=== PATIENT | male | born 1965 | race Caucasian/White ===

== ENCOUNTER 2016-08-01 12:12 | Emergency (ER) | payer OTHER ==
[~2016-08-01 12:12] MED LIST: FLEC1TAB PO; METO25TAB PO; PRAD75CA3 PO
[2016-08-01] MEDS ORDERED: ASPIRIN 81 MG CHEW TABLET As Ordered ONE (13:02)
[2016-08-01] MEDS ORDERED: NITROGLYCERIN 0.4 MG SUBL TABLET As Ordered ONE (13:02)
[2016-08-01 13:19] LABS: BASO # 0.1 K/mm3 (0.0-0.2); EOS # 0.4 K/mm3 (0.0-0.50); EOS % 4.1 % (0.0-3.0); LARGE UNSTAINED CELL # 0.3 K/mm3 (0.0-0.4); LARGE UNSTAINED CELL % 3.1 % (0.0-4.0); LYMPH # 2.9 K/mm3 (1.5-4.5); LYMPH % 32.3 % (24.0-44.0); MEAN CORPUSCULAR HEMOGLOBIN 28.9 pg (27.0-33.0); MEAN CORPUSCULAR HGB CONC 33.5 g/dl (32.0-36.5); MEAN CORPUSCULAR VOLUME 86.3 fl (80.0-96.0); MONO # 0.5 K/mm3 (0.0-0.8); MONO % 5.2 % (0.0-5.0); NEUTROPHILS # 4.9 K/mm3 (1.8-7.7); NEUTROPHILS % 54.2 % (36.0-66.0); PLATELET COUNT, AUTOMATED 201 k/mm3 (150-450); RED CELL DISTRIBUTION WIDTH 13.6 % (11.5-14.5); WHITE BLOOD COUNT 9.1 K/mm3 (4.0-10.0)
[2016-08-01 13:23] LABS: ALBUMIN 3.8 GM/DL (3.2-5.2); ALBUMIN/GLOBULIN RATIO 1.23 (1.00-1.93); ALKALINE PHOSPHATASE 63 U/L (45-117); ALT/SGPT 41 U/L (12-78); ANION GAP 8 MEQ/L (8-16); AST/SGOT 28 U/L (15-37); BILIRUBIN,DIRECT < 0.1 MG/DL (0.0-0.2); BILIRUBIN,TOTAL 0.4 MG/DL (0.2-1.0); BLOOD UREA NITROGEN 16 MG/DL (7-18); CALCIUM LEVEL 8.8 MG/DL (8.5-10.1); CARBON DIOXIDE LEVEL 27 MEQ/L (21-32); CHLORIDE LEVEL 107 MEQ/L (98-107); CREATININE FOR GFR 0.87 MG/DL (0.70-1.30); GLOMERULAR FILTRATION RATE > 60.0 (>56); GLUCOSE, FASTING 81 MG/DL (70-105); SODIUM LEVEL 142 MEQ/L (136-145); TOTAL PROTEIN 6.9 GM/DL (6.4-8.2)
--- NOTE | 2016-08-01 14:57 | REP ---
CHEST, ONE VIEW: HISTORY: Chest pain. COMPARISON: 06/28/2016 A minimal increase in interstitial markings is present in the lungs consistent with chronic interstitial fibrosis. The heart is normal in size. The pulmonary vasculature is normal in appearance. IMPRESSION: Chronic interstitial fibrosis. Signed by Scotty Gonzales MD 08/01/2016 03:08 P
--- NOTE | 2016-08-01 15:56 | EDDOCDS ---
Physician Documentation [facility] Name: Woody Whittaker Age: 51 yrs Sex: Male : 1965 Arrival Date: 08/01/2016 Time: 12:12 Bed 11 Private MD: Haylee Laurent Abdul Disposition: 08/01 15:40 Critical Care: Critical care not applicable. pc Disposition: 08/01/16 15:42 Discharged to Home/Self Care. Impression: Chest pain, unspecified. - Condition is Stable. - Discharge Instructions: Nonspecific Chest Pain. - Prescriptions for Protonix 40 mg Oral Tablet - take 1 tablet by ORAL route once daily; 30 tablet. Aspirin 81 mg - take 1 tablet by ORAL route once daily; 90 tablet. - Medication Reconciliation, Work Release Form - 1 day, Local Pharmacy Hours form. - Follow up: Magy Lindsey; When: Per Dr. Soto, the office will be calling to arrange an earlier stress test date; Reason: Continuance of care. - Problem is new. - Symptoms have improved. HPI: 12:57 This 51 yrs old Male presents to ER via Walkin/Carried/Asstd with complaints pc of Chest Pain. 12:57 The history is obtained from the patient. Symptoms began suddenly at 09:00, and are pc unchanged since the onset. Symptoms are ongoing and are constant. Symptoms He was driving to work and developed epigastric pain. At its worst, the symptoms were a 4 out of 10. In the emergency department, the symptoms are a 2 out of 10. The chest pain is described as a pressure. It is located primarily in the epigastric area. The pain does not radiate. The chest pain was associated with dizziness. 13:06 The symptoms are aggravated by nothing. The symptoms are alleviated by nothing. The pc patient's known risk factors for coronary artery disease include: a family history of coronary artery disease. The patient has not experienced similar symptoms in the past. 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 Historical: - Allergies: no known allergies; - Home Meds: 1. flecainide 50 mg Oral tab 1 tab every 12 hours 2. metoprolol tartrate 25 mg Oral tab 1 tab 2 times per day - PMHx: Atrial Fib; - PSHx: none; - The history from nurses notes was reviewed: and I agree with what is documented. - Social history: Smoking status: Patient uses tobacco products, light tobacco smoker. No barriers to communication noted, The patient speaks fluent Vincentian, Speaks appropriately for age. - Family history: Not pertinent. - : The pt / caregiver states he / she is not on anticoagulants. Home medication list is obtained from the patient. - Hospitalizations: : No recent hospitalization is reported. - Exposure Risk Screening:: None identified. - Immunization history:: All immunizations up-to-date. - Social history:: the patient smokes cigarettes the patient does not drink alcohol. ROS: 13:06 All systems are negative except as listed. The cardiovascular, respiratory, pc gastrointestinal and neurological components are also addressed in the HPI. Exam: 13:06 General Appearance: alert, no acute distress. pc 13:06 ENT: ear, nose and throat normal, pharynx normal. 13:06 Neck: supple, non-tender, no masses are appreciated. 13:06 Respiratory: no respiratory distress, normal breath sounds. 13:06 Cardiovascular: regular pulse rate, regular heart rhythm, normal heart sounds, equal and full pulses bilaterally. 13:06 Abdomen: soft, non-tender, no organomegaly, normal bowel sounds. 13:06 Skin: skin color is normal, warm, dry. 13:06 Extremities: The extremities have a grossly normal appearance, are non-tender, without acute ROM abnormalities. 13:06 Neuro: alert, oriented to person, place and time, cranial nerves normal as tested, no motor deficits, no sensory deficits. 13:06 Psych: normal mood. Vital Signs: 12:14 BP 109 / 71; Pulse 68; Resp 18 S; Temp 96.7(O); Pulse Ox 98% on R/A; Weight 95.25 kg / gr2 209.99 lbs (R); Height 6 ft. 2 in. (187.96 cm) (R); Pain 6/10; 12:37 BP 109 / 73 (auto/); kc3 12:37 Pulse 56 MON; Pulse Ox 98% ; kc3 12:51 Pulse 56 MON; Pulse Ox 96% ; kc3 12:52 BP 106 / 73 (auto/); kc3 13:03 Pulse 54 MON; Pulse Ox 96% ; kc3 13:04 BP 113 / 79 (auto/); kc3 13:07 Pulse 60 MON; Pulse Ox 96% ; kc3 13:08 BP 105 / 66 (auto/); kc3 13:08 BP 105 / 66; Pulse 63; Resp 18; Pulse Ox 94% on R/A; Pain 0/10; kc3 13:09 Pulse 64 MON; Pulse Ox 93% ; kc3 13:10 BP 107 / 64 (auto/); kc3 13:14 Pulse 58 MON; Pulse Ox 95% ; kc3 13:15 BP 107 / 65 (auto/); kc3 13:19 Pulse 56 MON; Pulse Ox 95% ; kc3 13:20 BP 110 / 70 (auto/); kc3 13:24 Pulse 54 MON; Pulse Ox 96% ; kc3 13:25 BP 116 / 76 (auto/); kc3 13:29 Pulse 58 MON; Pulse Ox 96% ; kc3 13:30 BP 105 / 74 (auto/); kc3 13:35 BP 103 / 72 (auto/); kc3 13:35 Pulse 56 MON; Pulse Ox 95% ; kc3 14:05 BP 103 / 70 (auto/); kc3 14:05 Pulse 54 MON; Pulse Ox 97% ; kc3 14:35 BP 104 / 73 (auto/); kc3 14:35 Pulse 56 MON; Pulse Ox 96% ; kc3 15:05 BP 107 / 77 (auto/); kc3 15:05 Pulse 58 MON; Pulse Ox 97% ; kc3 15:54 BP 100 / 67; Pulse 57; Resp 18; Temp 96.6(O); Pulse Ox 97% on R/A; Pain 0/10; kc3 12:14 Body Mass Index 26.96 (95.25 kg, 187.96 cm) gr2 MDM: 12:20 ECG WITH READING ER PHYS+CARDIAG ordered. EDMS 12:55 Aspirin Chewable Tablet 324 mg PO once ordered. pc 12:55 Nitrostat 0.4 mg Sublingual every 5 minutes; hold if SBP<90mmHg.Document Pain Score pc Response to Each Dose x3 ordered. 12:55 Cnc Set Up Operator/Pulse Ox/q 30 min VS ordered. pc 12:55 IV Saline Lock ordered. pc 12:55 Rhythm Strip to chart ordered. pc 12:57 Basic Metabolic Profile Ordered. EDMS 12:57 CBC with Diff Ordered. EDMS 12:57 Cardiac Injury Profile Ordered. EDMS 12:57 Troponin Ordered. EDMS 12:57 Liver Profile Ordered. EDMS 12:57 Lipase Ordered. EDMS 12:57 portable chest Ordered. EDMS 13:06 Differential diagnosis: acute myocardial infarction, cholecystitis, pancreatitis, pc unstable angina. Plan: labs, EKG, CXR, meds. The patient was medicated with aspirin in the Emergency Department. 13:24 Test interpretation: EKG. pc 13:27 CBC with Diff Reviewed. pc 13:27 Basic Metabolic Profile Reviewed. pc 13:27 Cardiac Injury Profile Reviewed. pc 13:27 Troponin Reviewed. pc 13:27 Liver Profile Reviewed. pc 13:27 Lipase Reviewed. pc 13:28 Repeat EKG (put time details section) ordered. pc 13:28 Redraw CIP &Troponin (put time in details section) ordered. pc 13:34 Redraw CIP &Troponin (put time in details section) complete. lbd 13:34 Repeat EKG (put time details section) complete. lbd 13:37 ECG WITH READING ER PHYS ordered. EDMS 13:37 CARDIAC MARKER PANEL Ordered. EDMS 15:17 Financial registration complete. [facility] 15:26 [facility] Payment Agreement was scanned into [employer] and attached to record. gjb 15:31 Test interpretation: EKG. pc 15:40 Data reviewed: old medical records, vital signs, nurses notes, EKG(s), lab test pc results, all radiology studies and available results. Test interpretation: LAB - all labs as ordered have been reviewed, interpreted and considered in the overall management of the clinical presentation; X-RAY - interpreted by Radiologist and personally reviewed, 1 view chest no acute disease. The patient has been re-examined and re-evaluated. The patient's symptoms have markedly improved after treatment. Physician consultation: Dr. Graham Soto MD regarding patient's condition, and advises the medications/treatment as provided. and agrees with the treatment provided and advises the discharge plans as outlined. Disposition: The historical points, examination findings, and any diagnostic results supporting the provided diagnosis, were discussed with the patient or legal guardian. The need for outpatient follow up with the provider listed on their discharge instructions was discussed. They were encouraged to return to [facility], or the nearest ED, if symptoms worsen/persist, or for any other questions/concerns. 15:43 portable chest Reviewed. pc EC:24 Rate is 55 beats/min. Rhythm is regular, Sinus bradycardia. QRS [place] is Normal. CA pc interval is normal. QRS interval is normal. QT interval is normal. No Q waves. T waves are Normal. No ST changes noted. Clinical impression: Sinus bradycardia. 15:31 Rate is 60 beats/min. Rhythm is regular, Normal Sinus Rhythm. QRS [place] is Normal. CA pc interval is normal. QRS interval is normal. QT interval is normal. No Q waves. T waves are Normal. No ST changes noted. Clinical impression: Normal Sinus Rhythm. Administered Medications: 13:03 Drug: Aspirin 324 mg [aspirin 81 mg chewable tablet (4 tabs)] Route: PO; [facility] 13:04 Drug: Nitrostat 0.4 mg [Nitrostat 0.4 mg sublingual tablet (1 tabs)] Route: Sublingual; 3 13:08 Follow up: BP 105 / 66; Pulse 63 bpm; Resp 18 bpm; Pulse Ox 94% RA; Pain 0/10 Adult 3 Signatures: Dispatcher [employer] EDMS Tobias Gambino MD MD pc Daly, Linda, [place] Operator Unit lbd Rene Burgos RN RN [id number] Lalita FabianRN RN [id number] Juana Vincent,RN RN [id number] Liana Puente The chart was reviewed and I authenticate all verbal orders and agree with the evaluation and treatment provided.Attachments: 15:26 [facility] Payment Agreement minoo MTDD
--- NOTE | 2016-08-01 15:56 | EDDOCDS ---
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 Aspirin mlb1 was not taken prior to arrival. Adult Sepsis Screening: The patient does not have new or worsening altered mentation. Patient's respiratory rate is less than 22. Systolic blood pressure is greater than 100. Patient has a qSOFA score of 0- Negative Sepsis Screen. Suicide/Homicide risk assessment- the patient denies having any suicidal and/or homicidal ideations and does not present with any other emotional, behavioral or mental health complaints. 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 Transition of care: patient was not received from another setting of care. 12:18 Acuity: ROSALINA Level 2 mlb1 12:18 Method Of Arrival: Walkin/Carried/Asstd mlb1 Triage Assessment: 12:20 General: Appears in no apparent distress, Behavior is appropriate for age, cooperative. mlb1 Pain: Location: mid-sternal area Pain currently is 2 out of 10 on a pain scale. HIV screening NA for this visit Offered previously. 15:48 Cardiovascular: Chest pain is described as Pain is 2 out of 10 on a pain scale. kc3 radiates Does not radiate. episodes are continuous began 2 hours prior to arrival. Historical: - Allergies: no known allergies; - Home Meds: 1. flecainide 50 mg Oral tab 1 tab every 12 hours 2. metoprolol tartrate 25 mg Oral tab 1 tab 2 times per day - PMHx: Atrial Fib; - PSHx: none; - The history from nurses notes was reviewed: and I agree with what is documented. - Social history: Smoking status: Patient uses tobacco products, light tobacco smoker. No barriers to communication noted, The patient speaks fluent Japanese, Speaks appropriately for age. - Family history: Not pertinent. - : The pt / caregiver states he / she is not on anticoagulants. Home medication list is obtained from the patient. - Hospitalizations: : No recent hospitalization is reported. - Exposure Risk Screening:: None identified. - Immunization history:: All immunizations up-to-date. - Social history:: the patient smokes cigarettes the patient does not drink alcohol. Screenin:38 Screening information is obtained from the patient. Fall risk: No risks identified. jo3 Assistance ADL's: requires no assistance with activities of daily living. Abuse/DV Screen: The patient / caregiver reports he/she is: not in a situation that causes fear, pain or injury. Nutritional screening: No deficits noted. Advance Directives: There is no active DNR order. home support is adequate. Assessment: 12:38 General: Appears in no apparent distress, comfortable, Behavior is appropriate for age, jo3 cooperative, pleasant. Neurological: Level of Consciousness is awake, alert, Oriented to person, place, time. Cardiovascular: Rhythm is sinus bradycardia No ectopy. Chest pain is described as mild, quality is tightness Chest pain began 2 hours ago. Respiratory: Airway is patent Respiratory effort is even, unlabored, Breath sounds are clear bilaterally. Derm: Skin is pink, warm & dry. 13:30 General: Appears in no apparent distress, comfortable, Behavior is appropriate for age, kc3 cooperative. Pain: Denies pain. Neurological: Level of Consciousness is awake, alert, obeys commands, Oriented to person, place, time. Cardiovascular: Rhythm is sinus bradycardia. Respiratory: Airway is patent Respiratory effort is even, unlabored. Derm: Skin is pink, warm & dry. 14:33 General: Appears in no apparent distress, comfortable, Behavior is appropriate for age, kc3 cooperative. General: Pt given sandwich per Dr. Gambino. . Pain: Denies pain. Neurological: Level of Consciousness is awake, alert, obeys commands, Oriented to person, place, time. Cardiovascular: Rhythm is sinus bradycardia. Respiratory: Airway is patent Respiratory effort is even, unlabored. Derm: Skin is pink, warm & dry. 15:33 General: Appears in no apparent distress, comfortable, Behavior is appropriate for age, kc3 cooperative. Pain: Denies pain. Neurological: Level of Consciousness is awake, alert, obeys commands, Oriented to person, place, time. Cardiovascular: Rhythm is sinus bradycardia Chest pain is denied. Respiratory: Respiratory effort is even, unlabored. Derm: Skin is pink, warm & dry. 15:48 General: Appears in no apparent distress, comfortable, Behavior is appropriate for age, kc3 cooperative. Pain: Denies pain. Neurological: Level of Consciousness is awake, alert, obeys commands, Oriented to person, place, time. Cardiovascular: Rhythm is sinus bradycardia Chest pain is denied. Respiratory: Airway is patent Respiratory effort is even, unlabored, Respiratory pattern is regular, symmetrical. Derm: Skin is pink, warm & dry. Musculoskeletal: Circulation, motion, and sensation intact. Vital Signs: 12:14 BP 109 / 71; Pulse 68; Resp 18 S; Temp 96.7(O); Pulse Ox 98% on R/A; Weight 95.25 kg gr2 (R); Height 6 ft. 2 in. (187.96 cm) (R); Pain 6/10; 12:37 BP 109 / 73 (auto/); kc3 12:37 Pulse 56 MON; Pulse Ox 98% ; kc3 12:51 Pulse 56 MON; Pulse Ox 96% ; kc3 12:52 BP 106 / 73 (auto/); kc3 13:03 Pulse 54 MON; Pulse Ox 96% ; kc3 13:04 BP 113 / 79 (auto/); kc3 13:07 Pulse 60 MON; Pulse Ox 96% ; kc3 13:08 BP 105 / 66 (auto/); kc3 13:08 BP 105 / 66; Pulse 63; Resp 18; Pulse Ox 94% on R/A; Pain 0/10; kc3 13:09 Pulse 64 MON; Pulse Ox 93% ; kc3 13:10 BP 107 / 64 (auto/); kc3 13:14 Pulse 58 MON; Pulse Ox 95% ; kc3 13:15 BP 107 / 65 (auto/); kc3 13:19 Pulse 56 MON; Pulse Ox 95% ; kc3 13:20 BP 110 / 70 (auto/); kc3 13:24 Pulse 54 MON; Pulse Ox 96% ; kc3 13:25 BP 116 / 76 (auto/); kc3 13:29 Pulse 58 MON; Pulse Ox 96% ; kc3 13:30 BP 105 / 74 (auto/); kc3 13:35 BP 103 / 72 (auto/); kc3 13:35 Pulse 56 MON; Pulse Ox 95% ; kc3 14:05 BP 103 / 70 (auto/); kc3 14:05 Pulse 54 MON; Pulse Ox 97% ; kc3 14:35 BP 104 / 73 (auto/); kc3 14:35 Pulse 56 MON; Pulse Ox 96% ; kc3 15:05 BP 107 / 77 (auto/); kc3 15:05 Pulse 58 MON; Pulse Ox 97% ; kc3 15:54 BP 100 / 67; Pulse 57; Resp 18; Temp 96.6(O); Pulse Ox 97% on R/A; Pain 0/10; kc3 12:14 Body Mass Index 26.96 (95.25 kg, 187.96 cm) gr2 Vitals: 12:14 Log In Time: August 01, 2016 at 12:14. gr2 12:14 RN notified that patient meets Red Flag criteria. gr2 ED Course: 12:13 Patient visited by Ana Carrizales. gr2 12:13 Patient moved to Waiting gr2 12:14 Haylee Laurent is Private Physician. gr2 12:16 Patient visited by Ana Carrizales. gr2 12:16 Patient moved to Pre RCE gr2 12:18 Juana Vincent,SHANTE is Primary Nurse. mlb1 12:18 Patient moved to 11 mlb1 12:19 Triage Initiated mlb1 12:20 Patient visited by Rene Burgos RN. mlb1 12:25 Patient visited by Jed Zayas PCA. jlf 12:25 Patient visited by Jed Zayas PCA. jlf 12:25 EKG done. (by ED staff). Reviewed by Tobias Gambino MD. jlf 12:33 Patient visited by Ana Carrizales. gr2 12:34 Tobias Gambino MD is Attending Physician. pc 12:40 Patient visited by Lalita Fabian RN. jo3 12:52 Patient visited by Tobias Gambino MD. pc 12:58 Lipase Sent. kc3 12:58 Liver Profile Sent. kc3 12:58 Basic Metabolic Profile Sent. kc3 12:58 CBC with Diff Sent. kc3 12:58 Cardiac Injury Profile Sent. kc3 12:58 Troponin Sent. kc3 12:58 Inserted saline lock: 18 gauge in left antecubital area. Labs drawn. (by ED staff). jo3 Sent per order to lab. 12:59 Patient visited by Lalita Fabian RN. jo3 13:06 The patient / caregiver is instructed regarding the plan of care and ED course. Cardiac kc3 monitor on. Pulse ox on. NIBP on. 13:36 Patient visited by Juana Vincent RN. kc3 14:06 Patient visited by Jed Zayas PCA. jlf 14:34 Patient visited by Juana Vincent RN. kc3 15:00 portable chest Returned. EDMS 15:05 Patient visited by Juana Vincent RN. kc3 15:05 CARDIAC MARKER PANEL Sent. kc3 15:09 Patient visited by Ciarra Spicer. nb2 15:09 EKG done. (by ED staff). Reviewed by Tobias Gambino MD. nb2 15:26 [place] [place] was scanned into [employer] and attached to record. gjb 15:34 Patient visited by Juana Vincent RN. kc3 15:41 Magy Lindsey is Referral Physician. pc 15:47 Discontinued IV lock intact, bleeding controlled, pressure dressing applied, No kc3 redness/swelling at site. No procedures done that require assistance. 15:54 portable chest Returned. EDMS Administered Medications: 13:03 Drug: Aspirin 324 mg [aspirin 81 mg chewable tablet (4 tabs)] Route: PO; kc3 13:04 Drug: Nitrostat 0.4 mg [Nitrostat 0.4 mg sublingual tablet (1 tabs)] Route: Sublingual; kc3 13:08 Follow up: BP 105 / 66; Pulse 63 bpm; Resp 18 bpm; Pulse Ox 94% RA; Pain 0/10 Adult kc3 Order Results: Lab Order: Basic Metabolic Profile; [facility] 08/01/16 12:30 Test: GLUCOSE, FASTING; Value: 81; Range: 70-105; Units: MG/DL; Status: F Test: BLOOD UREA NITROGEN; Value: 16; Range: 7-18; Units: MG/DL; Status: F Test: CREATININE FOR GFR; Value: 0.87; Range: 0.70-1.30; Units: MG/DL; Status: F Test: GLOMERULAR FILTRATION RATE; Value: > 60.0; Range: >56; Status: F Test: SODIUM LEVEL; Value: 142; Range: 136-145; Units: MEQ/L; Status: F Test: POTASSIUM SERUM; Value: 4.0; Range: 3.5-5.1; Units: MEQ/L; Status: F Test: CHLORIDE LEVEL; Value: 107; Range: 98-107; Units: MEQ/L; Status: F Test: CARBON DIOXIDE LEVEL; Value: 27; Range: 21-32; Units: MEQ/L; Status: F Test: ANION GAP; Value: 8; Range: 8-16; Units: MEQ/L; Status: F Test: CALCIUM LEVEL; Value: 8.8; Range: 8.5-10.1; Units: MG/DL; Status: F Test Note: ; Units are mL/min/1.73 m2 Chronic Kidney Disease Staging per NKF: Stage I & II GFR >=60 Normal to Mildly Decreased Stage III GFR 30-59 Moderately Decreased Stage IV GFR 15-29 Severely Decreased Stage V GFR <15 Very Little GFR Left ESRD GFR <15 on COIL BINDER Lab Order: CBC with Diff; SPEC'M 08/01/16 12:30 Test: WHITE BLOOD COUNT; Value: 9.1; Range: 4.0-10.0; Units: K/mm3; Status: F Test: RED BLOOD COUNT; Value: 4.93; Range: 4.30-6.10; Units: M/mm3; Status: F Test: HEMOGLOBIN; Value: 14.3; Range: 14.0-18.0; Units: g/dl; Status: F Test: HEMATOCRIT; Value: 42.6; Range: 42.0-52.0; Units: %; Status: F Test: MEAN CORPUSCULAR VOLUME; Value: 86.3; Range: 80.0-96.0; Units: fl; Status: F Test: MEAN CORPUSCULAR HEMOGLOBIN; Value: 28.9; Range: 27.0-33.0; Units: pg; Status: F Test: MEAN CORPUSCULAR HGB CONC; Value: 33.5; Range: 32.0-36.5; Units: g/dl; Status: F Test: RED CELL DISTRIBUTION WIDTH; Value: 13.6; Range: 11.5-14.5; Units: %; Status: F Test: PLATELET COUNT, AUTOMATED; Value: 201; Range: 150-450; Units: k/mm3; Status: F Test: NEUTROPHILS %; Value: 54.2; Range: 36.0-66.0; Units: %; Status: F Test: LYMPH %; Value: 32.3; Range: 24.0-44.0; Units: %; Status: F Test: MONO %; Value: 5.2; Range: 0.0-5.0; Abnormal: Above high normal; Units: %; Status: F Test: EOS %; Value: 4.1; Range: 0.0-3.0; Abnormal: Above high normal; Units: %; Status: F Test: BASO %; Value: 1.0; Range: 0.0-1.0; Units: %; Status: F Test: LARGE UNSTAINED CELL %; Value: 3.1; Range: 0.0-4.0; Units: %; Status: F Test: NEUTROPHILS #; Value: 4.9; Range: 1.8-7.7; Units: K/mm3; Status: F Test: LYMPH #; Value: 2.9; Range: 1.5-4.5; Units: K/mm3; Status: F Test: MONO #; Value: 0.5; Range: 0.0-0.8; Units: K/mm3; Status: F Test: EOS #; Value: 0.4; Range: 0.0-0.50; Units: K/mm3; Status: F Test: BASO #; Value: 0.1; Range: 0.0-0.2; Units: K/mm3; Status: F Test: LARGE UNSTAINED CELL #; Value: 0.3; Range: 0.0-0.4; Units: K/mm3; Status: F Lab Order: Cardiac Injury Profile; SPEC'M 08/01/16 12:30 Test: CPK CREATINE PHOSPHOKINASE; Value: 226; Range: 39-308; Units: U/L; Status: F Test: CK-MB VALUE MASS; Value: 1.9; Range: 0.0-3.6; Units: NG/ML; Status: F Test: MB/CK RELATIVE INDEX; Value: 0.84; Range: < OR =4; Status: F Test Note: ; DIAGNOSIS CRITERIA MMB ng/ml Relative Index (RI) NON-AMI < or = 5 N/A LUNDBERG ZONE > 5 < or = 4 AMI > 5 > 4 Lab Order: Troponin; SPEC'M 08/01/16 12:30 Test: TROPONIN I; Value: < 0.02; Range: < 0.10; Units: NG/ML; Status: F Test Note: ; Troponin I Reference Interval for [facility] LOCI: 99th Percentile= 0.00-0.045 ng/ml Risk Stratification: <= 0.10 ng/ml Decreased Risk for Adverse Clinical Events. 0.10-1.50 ng/ml Increased Risk for Adverse Clinical Events. Evaluation of additional criterion and/or repeat testing in 2-6 hours is suggested to rule out myocardial damage. >= 1.50 ng/ml Indicative of Myocardial Injury. Lab Order: Liver Profile; [facility] 08/01/16 12:30 Test: AST/SGOT; Value: 28; Range: 15-37; Units: U/L; Status: F Test: ALT/SGPT; Value: 41; Range: 12-78; Units: U/L; Status: F Test: ALKALINE PHOSPHATASE; Value: 63; Range: 45-117; Units: U/L; Status: F Test: BILIRUBIN,TOTAL; Value: 0.4; Range: 0.2-1.0; Units: MG/DL; Status: F Test: BILIRUBIN,DIRECT; Value: < 0.1; Range: 0.0-0.2; Units: MG/DL; Status: F Test: TOTAL PROTEIN; Value: 6.9; Range: 6.4-8.2; Units: GM/DL; Status: F Test: ALBUMIN; Value: 3.8; Range: 3.2-5.2; Units: GM/DL; Status: F Test: ALBUMIN/GLOBULIN RATIO; Value: 1.23; Range: 1.00-1.93; Status: F Lab Order: Lipase; [facility] 08/01/16 12:30 Test: LIPASE; Value: 96; Range: 73-393; Units: U/L; Status: F Lab Order: CARDIAC MARKER PANEL; [facility] 08/01/16 15:04 Test: CPK CREATINE PHOSPHOKINASE; Value: 189; Range: 39-308; Units: U/L; Status: F Test: CK-MB VALUE MASS; Value: 2.1; Range: 0.0-3.6; Units: NG/ML; Status: F Test: MB/CK RELATIVE INDEX; Value: 1.11; Range: < OR =4; Status: F Test: TROPONIN I; Value: < 0.02; Range: < 0.10; Units: NG/ML; Status: F Test Note: ; DIAGNOSIS CRITERIA MMB ng/ml Relative Index (RI) NON-AMI < or = 5 N/A LUNDBERG ZONE > 5 < or = 4 AMI > 5 > 4 Radiology Order: portable chest Test: portable chest REASON FOR EXAMINATION: Chest Pain; CHEST, ONE VIEW:; ; HISTORY: Chest pain.; ; COMPARISON: 06/28/2016; ; A minimal increase in interstitial markings is present in the lungs consistent; with chronic interstitial fibrosis. The heart is normal in size. The pulmonary; vasculature is normal in appearance.; ; IMPRESSION:; ; Chronic interstitial fibrosis.; ; ; Signed by; Scotty Gonzales MD 08/01/2016 03:08 P; Outcome: 15:42 Discharge ordered by Provider. pc 15:49 Discharge Assessment: Patient awake, alert and oriented x 3. No cognitive and/or kc3 functional deficits noted. Patient verbalized understanding of disposition instructions. patient administered narcotics - no. The following High Risk Discharge criteria are identified: None. Discharged to home ambulatory. Condition: stable. Discharge instructions given to patient, Instructed on discharge instructions, follow up and referral plans. medication usage, Demonstrated understanding of instructions, medications, Pt was receptive of discharge instructions/ teaching. Prescriptions given X 2. No special radiology studies were completed. Property :Personal belongings accompany Pt. 15:55 Patient left the ED. kc3 Signatures: Dispatcher [employer] EDMS Tobias Gambino MD MD pc Barney, Michael B RN RN mlb1 Lalita FabianRN RN Ana Blandon gr2 Jed Zayas PCA PROFESSIONAL ENGINEER Juana Palomo RN RN [id number] Liana Puente Nicole nb2 Corrections: (The following items were deleted from the chart) 12:33 12:14 BP 109 / 71; Pulse 68bpm; Resp 18bpm; Spontaneous; Pulse Ox 98% RA; Temp 96.7F gr2 Oral; 95.25 kg Reported; Height 6 ft. 2 in. Reported; BMI: 26.9; Pain 6/10; gr2 MTDD
--- NOTE | 2016-08-02 08:27 | ECGEPIP ---
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
--- NOTE | 2016-08-02 08:30 | ECGEPIP ---
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
--- NOTE | 2016-08-03 16:55 | EDDOCDS ---
Physician Documentation [facility] Name: Woody Whittaker Age: 51 yrs Sex: Male : 1965 Arrival Date: 08/01/2016 Time: 12:12 Bed 11 Private MD: Haylee Laurent Abdul Disposition: 08/01 15:40 Critical Care: Critical care not applicable. pc Disposition: 08/01/16 15:42 Discharged to Home/Self Care. Impression: Chest pain, unspecified. - Condition is Stable. - Discharge Instructions: Nonspecific Chest Pain. - Prescriptions for Protonix 40 mg Oral Tablet - take 1 tablet by ORAL route once daily; 30 tablet. Aspirin 81 mg - take 1 tablet by ORAL route once daily; 90 tablet. - Medication Reconciliation, Work Release Form - 1 day, Local Pharmacy Hours form. - Follow up: Magy Lindsey; When: Per Dr. Soto, the office will be calling to arrange an earlier stress test date; Reason: Continuance of care. - Problem is new. - Symptoms have improved. HPI: 12:57 This 51 yrs old Male presents to ER via Walkin/Carried/Asstd with complaints pc of Chest Pain. 12:57 The history is obtained from the patient. Symptoms began suddenly at 09:00, and are pc unchanged since the onset. Symptoms are ongoing and are constant. Symptoms He was driving to work and developed epigastric pain. At its worst, the symptoms were a 4 out of 10. In the emergency department, the symptoms are a 2 out of 10. The chest pain is described as a pressure. It is located primarily in the epigastric area. The pain does not radiate. The chest pain was associated with dizziness. 13:06 The symptoms are aggravated by nothing. The symptoms are alleviated by nothing. The pc patient's known risk factors for coronary artery disease include: a family history of coronary artery disease. The patient has not experienced similar symptoms in the past. The patient has been recently seen by a public health officer, for AFib. Historical: - Allergies: no known allergies; - Home Meds: 1. flecainide 50 mg Oral tab 1 tab every 12 hours 2. metoprolol tartrate 25 mg Oral tab 1 tab 2 times per day - PMHx: Atrial Fib; - PSHx: none; - The history from nurses notes was reviewed: and I agree with what is documented. - Social history: Smoking status: Patient uses tobacco products, light tobacco smoker. No barriers to communication noted, The patient speaks fluent Pakistani, Speaks appropriately for age. - Family history: Not pertinent. - : The pt / caregiver states he / she is not on anticoagulants. Home medication list is obtained from the patient. - Hospitalizations: : No recent hospitalization is reported. - Exposure Risk Screening:: None identified. - Immunization history:: All immunizations up-to-date. - Social history:: the patient smokes cigarettes the patient does not drink alcohol. ROS: 13:06 All systems are negative except as listed. The cardiovascular, respiratory, pc gastrointestinal and neurological components are also addressed in the HPI. Exam: 13:06 General Appearance: alert, no acute distress. pc 13:06 ENT: ear, nose and throat normal, pharynx normal. 13:06 Neck: supple, non-tender, no masses are appreciated. 13:06 Respiratory: no respiratory distress, normal breath sounds. 13:06 Cardiovascular: regular pulse rate, regular heart rhythm, normal heart sounds, equal and full pulses bilaterally. 13:06 Abdomen: soft, non-tender, no organomegaly, normal bowel sounds. 13:06 Skin: skin color is normal, warm, dry. 13:06 Extremities: The extremities have a grossly normal appearance, are non-tender, without acute ROM abnormalities. 13:06 Neuro: alert, oriented to person, place and time, cranial nerves normal as tested, no motor deficits, no sensory deficits. 13:06 Psych: normal mood. Vital Signs: 12:14 BP 109 / 71; Pulse 68; Resp 18 S; Temp 96.7(O); Pulse Ox 98% on R/A; Weight 95.25 kg / gr2 209.99 lbs (R); Height 6 ft. 2 in. (187.96 cm) (R); Pain 6/10; 12:37 BP 109 / 73 (auto/); kc3 12:37 Pulse 56 MON; Pulse Ox 98% ; kc3 12:51 Pulse 56 MON; Pulse Ox 96% ; kc3 12:52 BP 106 / 73 (auto/); kc3 13:03 Pulse 54 MON; Pulse Ox 96% ; kc3 13:04 BP 113 / 79 (auto/); kc3 13:07 Pulse 60 MON; Pulse Ox 96% ; kc3 13:08 BP 105 / 66 (auto/); kc3 13:08 BP 105 / 66; Pulse 63; Resp 18; Pulse Ox 94% on R/A; Pain 0/10; kc3 13:09 Pulse 64 MON; Pulse Ox 93% ; kc3 13:10 BP 107 / 64 (auto/); kc3 13:14 Pulse 58 MON; Pulse Ox 95% ; kc3 13:15 BP 107 / 65 (auto/); kc3 13:19 Pulse 56 MON; Pulse Ox 95% ; kc3 13:20 BP 110 / 70 (auto/); kc3 13:24 Pulse 54 MON; Pulse Ox 96% ; kc3 13:25 BP 116 / 76 (auto/); kc3 13:29 Pulse 58 MON; Pulse Ox 96% ; kc3 13:30 BP 105 / 74 (auto/); kc3 13:35 BP 103 / 72 (auto/); kc3 13:35 Pulse 56 MON; Pulse Ox 95% ; kc3 14:05 BP 103 / 70 (auto/); kc3 14:05 Pulse 54 MON; Pulse Ox 97% ; kc3 14:35 BP 104 / 73 (auto/); kc3 14:35 Pulse 56 MON; Pulse Ox 96% ; kc3 15:05 BP 107 / 77 (auto/); kc3 15:05 Pulse 58 MON; Pulse Ox 97% ; kc3 15:54 BP 100 / 67; Pulse 57; Resp 18; Temp 96.6(O); Pulse Ox 97% on R/A; Pain 0/10; kc3 12:14 Body Mass Index 26.96 (95.25 kg, 187.96 cm) gr2 MDM: 12:20 ECG WITH READING ER PHYS+CARDIAG ordered. EDMS 12:55 Aspirin Chewable Tablet 324 mg PO once ordered. pc 12:55 Nitrostat 0.4 mg Sublingual every 5 minutes; hold if SBP<90mmHg.Document Pain Score pc Response to Each Dose x3 ordered. 12:55 Livestock Nutritionist/Pulse Ox/q 30 min VS ordered. pc 12:55 IV Saline Lock ordered. pc 12:55 Rhythm Strip to chart ordered. pc 12:57 Basic Metabolic Profile Ordered. EDMS 12:57 CBC with Diff Ordered. EDMS 12:57 Cardiac Injury Profile Ordered. EDMS 12:57 Troponin Ordered. EDMS 12:57 Liver Profile Ordered. EDMS 12:57 Lipase Ordered. EDMS 12:57 portable chest Ordered. EDMS 13:06 Differential diagnosis: acute myocardial infarction, cholecystitis, pancreatitis, pc unstable angina. Plan: labs, EKG, CXR, meds. The patient was medicated with aspirin in the Emergency Department. 13:24 Test interpretation: EKG. pc 13:27 CBC with Diff Reviewed. pc 13:27 Basic Metabolic Profile Reviewed. pc 13:27 Cardiac Injury Profile Reviewed. pc 13:27 Troponin Reviewed. pc 13:27 Liver Profile Reviewed. pc 13:27 Lipase Reviewed. pc 13:28 Repeat EKG (put time details section) ordered. pc 13:28 Redraw CIP &Troponin (put time in details section) ordered. pc 13:34 Redraw CIP &Troponin (put time in details section) complete. lbd 13:34 Repeat EKG (put time details section) complete. lbd 13:37 ECG WITH READING ER PHYS ordered. EDMS 13:37 CARDIAC MARKER PANEL Ordered. EDMS 15:[address] [facility] 15:26 [facility] Payment Agreement was scanned into [employer] and attached to record. gjb 15:31 Test interpretation: EKG. pc 15:40 Data reviewed: old medical records, vital signs, nurses notes, EKG(s), lab test pc results, all radiology studies and available results. Test interpretation: LAB - all labs as ordered have been reviewed, interpreted and considered in the overall management of the clinical presentation; X-RAY - interpreted by Radiologist and personally reviewed, 1 view chest no acute disease. The patient has been re-examined and re-evaluated. The patient's symptoms have markedly improved after treatment. Physician consultation: Dr. Graham Soto MD regarding patient's condition, and advises the medications/treatment as provided. and agrees with the treatment provided and advises the discharge plans as outlined. Disposition: The historical points, examination findings, and any diagnostic results supporting the provided diagnosis, were discussed with the patient or legal guardian. The need for outpatient follow up with the provider listed on their discharge instructions was discussed. They were encouraged to return to [facility], or the nearest ED, if symptoms worsen/persist, or for any other questions/concerns. 15:43 portable chest Reviewed. pc 08/02 11:29 ECG/EKG was scanned into [employer] and attached to record. EC/18 13:24 Rate is 55 beats/min. Rhythm is regular, Sinus bradycardia. QRS Beaver is Normal. FL pc interval is normal. QRS interval is normal. QT interval is normal. No Q waves. T waves are Normal. No ST changes noted. Clinical impression: Sinus bradycardia. 15:31 Rate is 60 beats/min. Rhythm is regular, Normal Sinus Rhythm. QRS Beaver is Normal. FL pc interval is normal. QRS interval is normal. QT interval is normal. No Q waves. T waves are Normal. No ST changes noted. Clinical impression: Normal Sinus Rhythm. Administered Medications: 13:03 Drug: Aspirin 324 mg [aspirin 81 mg chewable tablet (4 tabs)] Route: PO; 3 13:04 Drug: Nitrostat 0.4 mg [Nitrostat 0.4 mg sublingual tablet (1 tabs)] Route: Sublingual; kc3 13:08 Follow up: BP 105 / 66; Pulse 63 bpm; Resp 18 bpm; Pulse Ox 94% RA; Pain 0/10 Adult 3 Signatures: Dispatcher [employer] EDMS Tobias Gambino MD MD pc Daly, Linda, College Counselor Unit lbd Rebecca Fung, Reg Reg gb Rene Burgos, RN RN [id number] Lalita Fabian,RN RN [place],RN RN [id number] Liana Puente The chart was reviewed and I authenticate all verbal orders and agree with the evaluation and treatment provided.Attachments: 15:26 [facility] Payment Agreement gjb 08/02 11:29 ECG/EKG Chart Complete MTDD
--- NOTE | 2016-08-03 16:55 | EDDOCDS ---
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 Aspirin mlb1 was not taken prior to arrival. Adult Sepsis Screening: The patient does not have new or worsening altered mentation. Patient's respiratory rate is less than 22. Systolic blood pressure is greater than 100. Patient has a qSOFA score of 0- Negative Sepsis Screen. Suicide/Homicide risk assessment- the patient denies having any suicidal and/or homicidal ideations and does not present with any other emotional, behavioral or mental health complaints. Status: Patient is not a slitter service and setter or dependent. Transition of care: patient was not received from another setting of care. 12:18 Acuity: ROSALINA Level 2 mlb1 12:18 Method Of Arrival: Walkin/Carried/Asstd mlb1 Triage Assessment: 12:20 General: Appears in no apparent distress, Behavior is appropriate for age, cooperative. mlb1 Pain: Location: mid-sternal area Pain currently is 2 out of 10 on a pain scale. HIV screening NA for this visit Offered previously. 15:48 Cardiovascular: Chest pain is described as Pain is 2 out of 10 on a pain scale. kc3 radiates Does not radiate. episodes are continuous began 2 hours prior to arrival. Historical: - Allergies: no known allergies; - Home Meds: 1. flecainide 50 mg Oral tab 1 tab every 12 hours 2. metoprolol tartrate 25 mg Oral tab 1 tab 2 times per day - PMHx: Atrial Fib; - PSHx: none; - The history from nurses notes was reviewed: and I agree with what is documented. - Social history: Smoking status: Patient uses tobacco products, light tobacco smoker. No barriers to communication noted, The patient speaks fluent Bruneian, Speaks appropriately for age. - Family history: Not pertinent. - : The pt / caregiver states he / she is not on anticoagulants. Home medication list is obtained from the patient. - Hospitalizations: : No recent hospitalization is reported. - Exposure Risk Screening:: None identified. - Immunization history:: All immunizations up-to-date. - Social history:: the patient smokes cigarettes the patient does not drink alcohol. Screenin:38 Screening information is obtained from the patient. Fall risk: No risks identified. jo3 Assistance ADL's: requires no assistance with activities of daily living. Abuse/DV Screen: The patient / caregiver reports he/she is: not in a situation that causes fear, pain or injury. Nutritional screening: No deficits noted. Advance Directives: There is no active DNR order. home support is adequate. Assessment: 12:38 General: Appears in no apparent distress, comfortable, Behavior is appropriate for age, jo3 cooperative, pleasant. Neurological: Level of Consciousness is awake, alert, Oriented to person, place, time. Cardiovascular: Rhythm is sinus bradycardia No ectopy. Chest pain is described as mild, quality is tightness Chest pain began 2 hours ago. Respiratory: Airway is patent Respiratory effort is even, unlabored, Breath sounds are clear bilaterally. Derm: Skin is pink, warm & dry. 13:30 General: Appears in no apparent distress, comfortable, Behavior is appropriate for age, kc3 cooperative. Pain: Denies pain. Neurological: Level of Consciousness is awake, alert, obeys commands, Oriented to person, place, time. Cardiovascular: Rhythm is sinus bradycardia. Respiratory: Airway is patent Respiratory effort is even, unlabored. Derm: Skin is pink, warm & dry. 14:33 General: Appears in no apparent distress, comfortable, Behavior is appropriate for age, kc3 cooperative. General: Pt given sandwich per Dr. Gambino. . Pain: Denies pain. Neurological: Level of Consciousness is awake, alert, obeys commands, Oriented to person, place, time. Cardiovascular: Rhythm is sinus bradycardia. Respiratory: Airway is patent Respiratory effort is even, unlabored. Derm: Skin is pink, warm & dry. 15:33 General: Appears in no apparent distress, comfortable, Behavior is appropriate for age, kc3 cooperative. Pain: Denies pain. Neurological: Level of Consciousness is awake, alert, obeys commands, Oriented to person, place, time. Cardiovascular: Rhythm is sinus bradycardia Chest pain is denied. Respiratory: Respiratory effort is even, unlabored. Derm: Skin is pink, warm & dry. 15:48 General: Appears in no apparent distress, comfortable, Behavior is appropriate for age, kc3 cooperative. Pain: Denies pain. Neurological: Level of Consciousness is awake, alert, obeys commands, Oriented to person, place, time. Cardiovascular: Rhythm is sinus bradycardia Chest pain is denied. Respiratory: Airway is patent Respiratory effort is even, unlabored, Respiratory pattern is regular, symmetrical. Derm: Skin is pink, warm & dry. Musculoskeletal: Circulation, motion, and sensation intact. Vital Signs: 12:14 BP 109 / 71; Pulse 68; Resp 18 S; Temp 96.7(O); Pulse Ox 98% on R/A; Weight 95.25 kg gr2 (R); Height 6 ft. 2 in. (187.96 cm) (R); Pain 6/10; 12:37 BP 109 / 73 (auto/); kc3 12:37 Pulse 56 MON; Pulse Ox 98% ; kc3 12:51 Pulse 56 MON; Pulse Ox 96% ; kc3 12:52 BP 106 / 73 (auto/); kc3 13:03 Pulse 54 MON; Pulse Ox 96% ; kc3 13:04 BP 113 / 79 (auto/); kc3 13:07 Pulse 60 MON; Pulse Ox 96% ; kc3 13:08 BP 105 / 66 (auto/); kc3 13:08 BP 105 / 66; Pulse 63; Resp 18; Pulse Ox 94% on R/A; Pain 0/10; kc3 13:09 Pulse 64 MON; Pulse Ox 93% ; kc3 13:10 BP 107 / 64 (auto/); kc3 13:14 Pulse 58 MON; Pulse Ox 95% ; kc3 13:15 BP 107 / 65 (auto/); kc3 13:19 Pulse 56 MON; Pulse Ox 95% ; kc3 13:20 BP 110 / 70 (auto/); kc3 13:24 Pulse 54 MON; Pulse Ox 96% ; kc3 13:25 BP 116 / 76 (auto/); kc3 13:29 Pulse 58 MON; Pulse Ox 96% ; kc3 13:30 BP 105 / 74 (auto/); kc3 13:35 BP 103 / 72 (auto/); kc3 13:35 Pulse 56 MON; Pulse Ox 95% ; kc3 14:05 BP 103 / 70 (auto/); kc3 14:05 Pulse 54 MON; Pulse Ox 97% ; kc3 14:35 BP 104 / 73 (auto/); kc3 14:35 Pulse 56 MON; Pulse Ox 96% ; kc3 15:05 BP 107 / 77 (auto/); kc3 15:05 Pulse 58 MON; Pulse Ox 97% ; kc3 15:54 BP 100 / 67; Pulse 57; Resp 18; Temp 96.6(O); Pulse Ox 97% on R/A; Pain 0/10; kc3 12:14 Body Mass Index 26.96 (95.25 kg, 187.96 cm) gr2 Vitals: 12:14 Log In Time: August 01, 2016 at 12:14. gr2 12:14 RN notified that patient meets Red Flag criteria. gr2 ED Course: 12:13 Patient visited by Ana Carrizales. gr2 12:13 Patient moved to Waiting gr2 12:14 Haylee Laurent is Private Physician. gr2 12:16 Patient visited by Ana Carrizales. gr2 12:16 Patient moved to Pre RCE gr2 12:18 Juana Vincent,SHANTE is Primary Nurse. mlb1 12:18 Patient moved to 11 mlb1 12:19 Triage Initiated mlb1 12:20 Patient visited by Rene Burgos RN. mlb1 12:25 Patient visited by Jed Zayas PCA. jlf 12:25 Patient visited by Jed Zayas PCA. jlf 12:25 EKG done. (by ED staff). Reviewed by Tobias Gambino MD. jlf 12:33 Patient visited by Ana Carrizales. gr2 12:34 Tobias Gambino MD is Attending Physician. pc 12:40 Patient visited by Lalita Fabian RN. jo3 12:52 Patient visited by Tobias Gambino MD. pc 12:58 Lipase Sent. kc3 12:58 Liver Profile Sent. kc3 12:58 Basic Metabolic Profile Sent. kc3 12:58 CBC with Diff Sent. kc3 12:58 Cardiac Injury Profile Sent. kc3 12:58 Troponin Sent. kc3 12:58 Inserted saline lock: 18 gauge in left antecubital area. Labs drawn. (by ED staff). jo3 Sent per order to lab. 12:59 Patient visited by Lalita Fabian RN. jo3 13:06 The patient / caregiver is instructed regarding the plan of care and ED course. Cardiac kc3 monitor on. Pulse ox on. NIBP on. 13:36 Patient visited by Juana Vincent RN. kc3 14:06 Patient visited by Jed Zayas PCA. jlf 14:34 Patient visited by Juana Vincent RN. kc3 15:00 portable chest Returned. EDMS 15:05 Patient visited by Juana Vincent RN. kc3 15:05 CARDIAC MARKER PANEL Sent. kc3 15:09 Patient visited by Ciarra Spicer. nb2 15:09 EKG done. (by ED staff). Reviewed by Tobisa Gambino MD. nb2 15:26 [facility] [place] Agreement was scanned into [employer] and attached to record. gjb 15:34 Patient visited by Juana Vincent RN. kc3 15:41 Magy Lindsey is Referral Physician. pc 15:47 Discontinued IV lock intact, bleeding controlled, pressure dressing applied, No kc3 redness/swelling at site. No procedures done that require assistance. 15:54 portable chest Returned. EDMS 15:56 Patient name changed from Woody\S\Ramo\S\Panfilo\S\ to Woody\S\ \S\Panfilo. EDMS 19 09:00 EKG-ADULT Returned. EDMS 09:01 ECG WITH READING ER PHYS Returned. EDMS 11:29 ECG/EKG was scanned into [employer] and attached to record. gb Administered Medications: 08/01 13:03 Drug: Aspirin 324 mg [aspirin 81 mg chewable tablet (4 tabs)] Route: PO; kc3 13:04 Drug: Nitrostat 0.4 mg [Nitrostat 0.4 mg sublingual tablet (1 tabs)] Route: Sublingual; kc3 13:08 Follow up: BP 105 / 66; Pulse 63 bpm; Resp 18 bpm; Pulse Ox 94% RA; Pain 0/10 Adult kc3 Order Results: Lab Order: Basic Metabolic Profile; SPEC'M 08/01/16 12:30 Test: GLUCOSE, FASTING; Value: 81; Range: 70-105; Units: MG/DL; Status: F Test: BLOOD UREA NITROGEN; Value: 16; Range: 7-18; Units: MG/DL; Status: F Test: CREATININE FOR GFR; Value: 0.87; Range: 0.70-1.30; Units: MG/DL; Status: F Test: GLOMERULAR FILTRATION RATE; Value: > 60.0; Range: >56; Status: F Test: SODIUM LEVEL; Value: 142; Range: 136-145; Units: MEQ/L; Status: F Test: POTASSIUM SERUM; Value: 4.0; Range: 3.5-5.1; Units: MEQ/L; Status: F Test: CHLORIDE LEVEL; Value: 107; Range: 98-107; Units: MEQ/L; Status: F Test: CARBON DIOXIDE LEVEL; Value: 27; Range: 21-32; Units: MEQ/L; Status: F Test: ANION GAP; Value: 8; Range: 8-16; Units: MEQ/L; Status: F Test: CALCIUM LEVEL; Value: 8.8; Range: 8.5-10.1; Units: MG/DL; Status: F Test Note: ; Units are mL/min/1.73 m2 Chronic Kidney Disease Staging per NKF: Stage I & II GFR >=60 Normal to Mildly Decreased Stage III GFR 30-59 Moderately Decreased Stage IV GFR 15-29 Severely Decreased Stage V GFR <15 Very Little GFR Left ESRD GFR <15 on CERTIFIED HYPERBARIC TECHNICIAN Lab Order: CBC with Diff; SPEC'M 08/01/16 12:30 Test: WHITE BLOOD COUNT; Value: 9.1; Range: 4.0-10.0; Units: K/mm3; Status: F Test: RED BLOOD COUNT; Value: 4.93; Range: 4.30-6.10; Units: M/mm3; Status: F Test: HEMOGLOBIN; Value: 14.3; Range: 14.0-18.0; Units: g/dl; Status: F Test: HEMATOCRIT; Value: 42.6; Range: 42.0-52.0; Units: %; Status: F Test: MEAN CORPUSCULAR VOLUME; Value: 86.3; Range: 80.0-96.0; Units: fl; Status: F Test: MEAN CORPUSCULAR HEMOGLOBIN; Value: 28.9; Range: 27.0-33.0; Units: pg; Status: F Test: MEAN CORPUSCULAR HGB CONC; Value: 33.5; Range: 32.0-36.5; Units: g/dl; Status: F Test: RED CELL DISTRIBUTION WIDTH; Value: 13.6; Range: 11.5-14.5; Units: %; Status: F Test: PLATELET COUNT, AUTOMATED; Value: 201; Range: 150-450; Units: k/mm3; Status: F Test: NEUTROPHILS %; Value: 54.2; Range: 36.0-66.0; Units: %; Status: F Test: LYMPH %; Value: 32.3; Range: 24.0-44.0; Units: %; Status: F Test: MONO %; Value: 5.2; Range: 0.0-5.0; Abnormal: Above high normal; Units: %; Status: F Test: EOS %; Value: 4.1; Range: 0.0-3.0; Abnormal: Above high normal; Units: %; Status: F Test: BASO %; Value: 1.0; Range: 0.0-1.0; Units: %; Status: F Test: LARGE UNSTAINED CELL %; Value: 3.1; Range: 0.0-4.0; Units: %; Status: F Test: NEUTROPHILS #; Value: 4.9; Range: 1.8-7.7; Units: K/mm3; Status: F Test: LYMPH #; Value: 2.9; Range: 1.5-4.5; Units: K/mm3; Status: F Test: MONO #; Value: 0.5; Range: 0.0-0.8; Units: K/mm3; Status: F Test: EOS #; Value: 0.4; Range: 0.0-0.50; Units: K/mm3; Status: F Test: BASO #; Value: 0.1; Range: 0.0-0.2; Units: K/mm3; Status: F Test: LARGE UNSTAINED CELL #; Value: 0.3; Range: 0.0-0.4; Units: K/mm3; Status: F Lab Order: Cardiac Injury Profile; SPEC'M 08/01/16 12:30 Test: CPK CREATINE PHOSPHOKINASE; Value: 226; Range: 39-308; Units: U/L; Status: F Test: CK-MB VALUE MASS; Value: 1.9; Range: 0.0-3.6; Units: NG/ML; Status: F Test: MB/CK RELATIVE INDEX; Value: 0.84; Range: < OR =4; Status: F Test Note: ; DIAGNOSIS CRITERIA MMB ng/ml Relative Index (RI) NON-AMI < or = 5 N/A LUNDBERG ZONE > 5 < or = 4 AMI > 5 > 4 Lab Order: Troponin; [facility] 08/01/16 12:30 Test: TROPONIN I; Value: < 0.02; Range: < 0.10; Units: NG/ML; Status: F Test Note: ; Troponin I Reference Interval for [employer] LOCI: 99th Percentile= 0.00-0.045 ng/ml Risk Stratification: <= 0.10 ng/ml Decreased Risk for Adverse Clinical Events. 0.10-1.50 ng/ml Increased Risk for Adverse Clinical Events. Evaluation of additional criterion and/or repeat testing in 2-6 hours is suggested to rule out myocardial damage. >= 1.50 ng/ml Indicative of Myocardial Injury. Lab Order: Liver Profile; [facility] 08/01/16 12:30 Test: AST/SGOT; Value: 28; Range: 15-37; Units: U/L; Status: F Test: ALT/SGPT; Value: 41; Range: 12-78; Units: U/L; Status: F Test: ALKALINE PHOSPHATASE; Value: 63; Range: 45-117; Units: U/L; Status: F Test: BILIRUBIN,TOTAL; Value: 0.4; Range: 0.2-1.0; Units: MG/DL; Status: F Test: BILIRUBIN,DIRECT; Value: < 0.1; Range: 0.0-0.2; Units: MG/DL; Status: F Test: TOTAL PROTEIN; Value: 6.9; Range: 6.4-8.2; Units: GM/DL; Status: F Test: ALBUMIN; Value: 3.8; Range: 3.2-5.2; Units: GM/DL; Status: F Test: ALBUMIN/GLOBULIN RATIO; Value: 1.23; Range: 1.00-1.93; Status: F Lab Order: Lipase; [facility] 08/01/16 12:30 Test: LIPASE; Value: 96; Range: 73-393; Units: U/L; Status: F Lab Order: CARDIAC MARKER PANEL; [facility] 08/01/16 15:04 Test: CPK CREATINE PHOSPHOKINASE; Value: 189; Range: 39-308; Units: U/L; Status: F Test: CK-MB VALUE MASS; Value: 2.1; Range: 0.0-3.6; Units: NG/ML; Status: F Test: MB/CK RELATIVE INDEX; Value: 1.11; Range: < OR =4; Status: F Test: TROPONIN I; Value: < 0.02; Range: < 0.10; Units: NG/ML; Status: F Test Note: ; DIAGNOSIS CRITERIA MMB ng/ml Relative Index (RI) NON-AMI < or = 5 N/A LUNDBERG ZONE > 5 < or = 4 AMI > 5 > 4 Radiology Order: EKG-ADULT Test: EKG-ADULT REASON FOR EXAMINATION: Chest Pain; Stationary ECG Study; [facility] ED; ; Test Date: 2016-08-01; Pat Name: WOODY AUGUSTINE Department:; Room: -; Gender: Apple Packing Header: [email or web address]; : 1965 Requested By: Tobias Keller; Order Number: [id number] Reading MD: Tobias Gambino; Measurements; Intervals [place]; Rate: 55 P: 20; WI: 179 QRS: 18; QRSD: 90 T: 22; QT: 405; QTc: 390; Interpretive Statements; SINUS BRADYCARDIA; NSTTW ABNORMALITIES; Electronically Signed On 08-02-2016 8:27:28 EST by Tobias Gambino; Radiology Order: portable chest Test: portable chest REASON FOR EXAMINATION: Chest Pain; CHEST, ONE VIEW:; ; HISTORY: Chest pain.; ; COMPARISON: 06/28/2016; ; A minimal increase in interstitial markings is present in the lungs consistent; with chronic interstitial fibrosis. The heart is normal in size. The pulmonary; vasculature is normal in appearance.; ; IMPRESSION:; ; Chronic interstitial fibrosis.; ; ; Signed by; Scotty Gonzales MD 08/01/2016 03:08 P; Radiology Order: ECG WITH READING ER PHYS Test: ECG WITH READING ER PHYS REASON FOR EXAMINATION: CHEST PAIN(REPEAT AT 3P); Stationary ECG Study; [facility] ED; ; Test Date: 2016-08-01; Pat Name: WOODY AUGUSTINE Department:; Room: -; Gender: M Apple Packing Header: karley; : 1965 Requested By: Tobias Keller; Order Number: [id number] Reading MD: Tobias Gambino; Measurements; Intervals [place]; Rate: 60 P: 42; WI: 201 QRS: 31; QRSD: 98 T: 37; QT: 419; QTc: 421; Interpretive Statements; SINUS RHYTHM; ; Electronically Signed On 08-02-2016 8:30:37 EST by Tobias Gambino; Outcome: 15:42 Discharge ordered by Provider. 15:49 Discharge Assessment: Patient awake, alert and oriented x 3. No cognitive and/or kc3 functional deficits noted. Patient verbalized understanding of disposition instructions. patient administered narcotics - no. The following High Risk Discharge criteria are identified: None. Discharged to home ambulatory. Condition: stable. Discharge instructions given to patient, Instructed on discharge instructions, follow up and referral plans. medication usage, Demonstrated understanding of instructions, medications, Pt was receptive of discharge instructions/ teaching. Prescriptions given X 2. No special radiology studies were completed. Property :Personal belongings accompany Pt. 15:55 Patient left the ED. kc3 Signatures: Dispatcher [employer] EDMS Tobias Gambino MD MD pc Barnhardt, Gloria, Rene Reece RN RN mlb1 Lalita Fabian RN RN Ana Blandon gr2 Jed Zayas, BIPIN PICKLING TANK OPERATOR Juana Palomo RN RN [email or web address] Liana Puente Nicole nb2 Corrections: (The following items were deleted from the chart) 12:33 12:14 BP 109 / 71; Pulse 68bpm; Resp 18bpm; Spontaneous; Pulse Ox 98% RA; Temp 96.7F gr2 Oral; 95.25 kg Reported; Height 6 ft. 2 in. Reported; BMI: 26.9; Pain 6/10; gr2 Chart Complete MTDD
--- NOTE | 2016-08-03 16:55 | EDDOCDS ---
Physician Documentation [facility] Name: Woody Whittaker Age: 51 yrs Sex: Male : 1965 Arrival Date: 08/01/2016 Time: 12:12 Bed 11 Private MD: Haylee Laurent Abdul Disposition: 08/01 15:40 Critical Care: Critical care not applicable. pc Disposition: 08/01/16 15:42 Discharged to Home/Self Care. Impression: Chest pain, unspecified. - Condition is Stable. - Discharge Instructions: Nonspecific Chest Pain. - Prescriptions for Protonix 40 mg Oral Tablet - take 1 tablet by ORAL route once daily; 30 tablet. Aspirin 81 mg - take 1 tablet by ORAL route once daily; 90 tablet. - Medication Reconciliation, Work Release Form - 1 day, Local Pharmacy Hours form. - Follow up: Magy Lindsey; When: Per Dr. Soto, the office will be calling to arrange an earlier stress test date; Reason: Continuance of care. - Problem is new. - Symptoms have improved. HPI: 12:57 This 51 yrs old Male presents to ER via Walkin/Carried/Asstd with complaints pc of Chest Pain. 12:57 The history is obtained from the patient. Symptoms began suddenly at 09:00, and are pc unchanged since the onset. Symptoms are ongoing and are constant. Symptoms He was driving to work and developed epigastric pain. At its worst, the symptoms were a 4 out of 10. In the emergency department, the symptoms are a 2 out of 10. The chest pain is described as a pressure. It is located primarily in the epigastric area. The pain does not radiate. The chest pain was associated with dizziness. 13:06 The symptoms are aggravated by nothing. The symptoms are alleviated by nothing. The pc patient's known risk factors for coronary artery disease include: a family history of coronary artery disease. The patient has not experienced similar symptoms in the past. The patient has been recently seen by a stitch cleaner, for AFib. Historical: - Allergies: no known allergies; - Home Meds: 1. flecainide 50 mg Oral tab 1 tab every 12 hours 2. metoprolol tartrate 25 mg Oral tab 1 tab 2 times per day - PMHx: Atrial Fib; - PSHx: none; - The history from nurses notes was reviewed: and I agree with what is documented. - Social history: Smoking status: Patient uses tobacco products, light tobacco smoker. No barriers to communication noted, The patient speaks fluent Armenian, Speaks appropriately for age. - Family history: Not pertinent. - : The pt / caregiver states he / she is not on anticoagulants. Home medication list is obtained from the patient. - Hospitalizations: : No recent hospitalization is reported. - Exposure Risk Screening:: None identified. - Immunization history:: All immunizations up-to-date. - Social history:: the patient smokes cigarettes the patient does not drink alcohol. ROS: 13:06 All systems are negative except as listed. The cardiovascular, respiratory, pc gastrointestinal and neurological components are also addressed in the HPI. Exam: 13:06 General Appearance: alert, no acute distress. pc 13:06 ENT: ear, nose and throat normal, pharynx normal. 13:06 Neck: supple, non-tender, no masses are appreciated. 13:06 Respiratory: no respiratory distress, normal breath sounds. 13:06 Cardiovascular: regular pulse rate, regular heart rhythm, normal heart sounds, equal and full pulses bilaterally. 13:06 Abdomen: soft, non-tender, no organomegaly, normal bowel sounds. 13:06 Skin: skin color is normal, warm, dry. 13:06 Extremities: The extremities have a grossly normal appearance, are non-tender, without acute ROM abnormalities. 13:06 Neuro: alert, oriented to person, place and time, cranial nerves normal as tested, no motor deficits, no sensory deficits. 13:06 Psych: normal mood. Vital Signs: 12:14 BP 109 / 71; Pulse 68; Resp 18 S; Temp 96.7(O); Pulse Ox 98% on R/A; Weight 95.25 kg / gr2 209.99 lbs (R); Height 6 ft. 2 in. (187.96 cm) (R); Pain 6/10; 12:37 BP 109 / 73 (auto/); kc3 12:37 Pulse 56 MON; Pulse Ox 98% ; kc3 12:51 Pulse 56 MON; Pulse Ox 96% ; kc3 12:52 BP 106 / 73 (auto/); kc3 13:03 Pulse 54 MON; Pulse Ox 96% ; kc3 13:04 BP 113 / 79 (auto/); kc3 13:07 Pulse 60 MON; Pulse Ox 96% ; kc3 13:08 BP 105 / 66 (auto/); kc3 13:08 BP 105 / 66; Pulse 63; Resp 18; Pulse Ox 94% on R/A; Pain 0/10; kc3 13:09 Pulse 64 MON; Pulse Ox 93% ; kc3 13:10 BP 107 / 64 (auto/); kc3 13:14 Pulse 58 MON; Pulse Ox 95% ; kc3 13:15 BP 107 / 65 (auto/); kc3 13:19 Pulse 56 MON; Pulse Ox 95% ; kc3 13:20 BP 110 / 70 (auto/); kc3 13:24 Pulse 54 MON; Pulse Ox 96% ; kc3 13:25 BP 116 / 76 (auto/); kc3 13:29 Pulse 58 MON; Pulse Ox 96% ; kc3 13:30 BP 105 / 74 (auto/); kc3 13:35 BP 103 / 72 (auto/); kc3 13:35 Pulse 56 MON; Pulse Ox 95% ; kc3 14:05 BP 103 / 70 (auto/); kc3 14:05 Pulse 54 MON; Pulse Ox 97% ; kc3 14:35 BP 104 / 73 (auto/); kc3 14:35 Pulse 56 MON; Pulse Ox 96% ; kc3 15:05 BP 107 / 77 (auto/); kc3 15:05 Pulse 58 MON; Pulse Ox 97% ; kc3 15:54 BP 100 / 67; Pulse 57; Resp 18; Temp 96.6(O); Pulse Ox 97% on R/A; Pain 0/10; kc3 12:14 Body Mass Index 26.96 (95.25 kg, 187.96 cm) gr2 MDM: 12:20 ECG WITH READING ER PHYS+CARDIAG ordered. EDMS 12:55 Aspirin Chewable Tablet 324 mg PO once ordered. pc 12:55 Nitrostat 0.4 mg Sublingual every 5 minutes; hold if SBP<90mmHg.Document Pain Score pc Response to Each Dose x3 ordered. 12:55 Banking Teacher/Pulse Ox/q 30 min VS ordered. pc 12:55 IV Saline Lock ordered. pc 12:55 Rhythm Strip to chart ordered. pc 12:57 Basic Metabolic Profile Ordered. EDMS 12:57 CBC with Diff Ordered. EDMS 12:57 Cardiac Injury Profile Ordered. EDMS 12:57 Troponin Ordered. EDMS 12:57 Liver Profile Ordered. EDMS 12:57 Lipase Ordered. EDMS 12:57 portable chest Ordered. EDMS 13:06 Differential diagnosis: acute myocardial infarction, cholecystitis, pancreatitis, pc unstable angina. Plan: labs, EKG, CXR, meds. The patient was medicated with aspirin in the Emergency Department. 13:24 Test interpretation: EKG. pc 13:27 CBC with Diff Reviewed. pc 13:27 Basic Metabolic Profile Reviewed. pc 13:27 Cardiac Injury Profile Reviewed. pc 13:27 Troponin Reviewed. pc 13:27 Liver Profile Reviewed. pc 13:27 Lipase Reviewed. pc 13:28 Repeat EKG (put time details section) ordered. pc 13:28 Redraw CIP &Troponin (put time in details section) ordered. pc 13:34 Redraw CIP &Troponin (put time in details section) complete. lbd 13:34 Repeat EKG (put time details section) complete. lbd 13:37 ECG WITH READING ER PHYS ordered. EDMS 13:37 CARDIAC MARKER PANEL Ordered. EDMS 15:17 Financial registration complete. [facility] 15:26 [facility] Payment Agreement was scanned into [facility] and attached to record. gjb 15:31 Test interpretation: EKG. pc 15:40 Data reviewed: old medical records, vital signs, nurses notes, EKG(s), lab test pc results, all radiology studies and available results. Test interpretation: LAB - all labs as ordered have been reviewed, interpreted and considered in the overall management of the clinical presentation; X-RAY - interpreted by Radiologist and personally reviewed, 1 view chest no acute disease. The patient has been re-examined and re-evaluated. The patient's symptoms have markedly improved after treatment. Physician consultation: Dr. Graham Soto MD regarding patient's condition, and advises the medications/treatment as provided. and agrees with the treatment provided and advises the discharge plans as outlined. Disposition: The historical points, examination findings, and any diagnostic results supporting the provided diagnosis, were discussed with the patient or legal guardian. The need for outpatient follow up with the provider listed on their discharge instructions was discussed. They were encouraged to return to [facility], or the nearest ED, if symptoms worsen/persist, or for any other questions/concerns. 15:43 portable chest Reviewed. pc 08/02 11:29 ECG/EKG was scanned into [facility] and attached to record. EC/18 13:24 Rate is 55 beats/min. Rhythm is regular, Sinus bradycardia. QRS Bond is Normal. LA pc interval is normal. QRS interval is normal. QT interval is normal. No Q waves. T waves are Normal. No ST changes noted. Clinical impression: Sinus bradycardia. 15:31 Rate is 60 beats/min. Rhythm is regular, Normal Sinus Rhythm. QRS Bond is Normal. LA pc interval is normal. QRS interval is normal. QT interval is normal. No Q waves. T waves are Normal. No ST changes noted. Clinical impression: Normal Sinus Rhythm. Administered Medications: 13:03 Drug: Aspirin 324 mg [aspirin 81 mg chewable tablet (4 tabs)] Route: PO; 3 13:04 Drug: Nitrostat 0.4 mg [Nitrostat 0.4 mg sublingual tablet (1 tabs)] Route: Sublingual; kc3 13:08 Follow up: BP 105 / 66; Pulse 63 bpm; Resp 18 bpm; Pulse Ox 94% RA; Pain 0/10 Adult 3 Signatures: Dispatcher [employer] EDMS Tobias Gambino MD MD pc Daly, Linda, [employer] [facility] lbd Rebecca Fung, Reg Reg gb Rene Burgos, RN RN [id number] Lalita Fabian,RN RN Juana Nova,RN RN [id number] Liana Puente The chart was reviewed and I authenticate all verbal orders and agree with the evaluation and treatment provided.Attachments: 15:26 [facility] Payment Agreement gjb 08/02 11:29 ECG/EKG Chart Complete MTDD
== END 2016-08-01 15:55 | disposition home or self-care (01) ==
LOC: M ED 12:12
DX: R07.9 Chest pain, unspecified (principal); R42 Dizziness and giddiness; R00.1 Bradycardia, unspecified; I48.91 Unspecified atrial fibrillation; Z79.899 Other long term (current) drug therapy; F17.210 Nicotine dependence, cigarettes, uncomplicated

== ENCOUNTER → 2017-09-30 | Outpatient (CLI) | payer OTHER ==
[2017-09-30 16:15] LABS: CK-MB VALUE MASS 3.2 NG/ML (0.0-3.6); CPK CREATINE PHOSPHOKINASE 249 U/L (39-308); MB/CK RELATIVE INDEX 1.28 (< OR =4); TROPONIN I < 0.02 NG/ML (< 0.10)
== END ==
LOC: M LAB 15:19
DX: R07.9 Chest pain, unspecified (principal)

== ENCOUNTER → 2017-10-14 | Outpatient (CLI) | payer OTHER | LOC: M RAD 14:33 | DX: M16.12 Unilateral primary osteoarthritis, left hip (principal) | CPT/HCPCS: 73030 ==

== ENCOUNTER → 2020-11-07 | Outpatient (REF) | payer OTHER ==
[~2020-11-07] MED LIST changes: +METO25TA4 PO; -METO25TAB PO; -PRAD75CA3 PO; +PRAD75CA5 PO
== END ==
LOC: M LAB REF 16:23
PROVIDERS: ATTEND Surgery
DX: L72.0 Epidermal cyst (principal)

== ENCOUNTER 2021-10-11 07:07 | Emergency (ER) | payer OTHER ==
[~2021-10-11] VITALS: Ht 188 cm; Wt 94.8 kg
[2021-10-11] MEDS ORDERED: ESOM0.1C PO (07:16)
[2021-10-11] MEDS ORDERED: NS 500 ML IV ONE ×3 (07:35→09:40)
[2021-10-11] MEDS ORDERED: METOPROLOL 5 MG/5 ML VIAL IV SCH (07:40)
[2021-10-11] MEDS ORDERED: METOPROLOL TART 25 MG TABLET PO ONE (07:40)
[2021-10-11 07:45] LABS: BASO # 0.1 10^3/uL (0.0-0.2); BASO % 0.5 % (0.0-1.0); EOS # 0.1 10^3/uL (0.0-0.5); EOS % 0.6 % (0.0-3.0); HEMATOCRIT 45.9 % (42.0-52.0); HEMOGLOBIN 15.6 g/dl (13.5-17.5); LYMPH # 0.8 10^3/uL (1.5-5.0); LYMPH % 7.4 % (24.0-44.0); MEAN CORPUSCULAR HEMOGLOBIN 28.5 pg (27.0-33.0); MEAN CORPUSCULAR VOLUME 83.9 fl (80.0-96.0); MONO # 0.6 10^3/uL (0.0-0.8); MONO % 5.6 % (2.0-8.0); NEUTROPHILS # 9.7 10^3/uL (1.5-8.5); NEUTROPHILS % 85.4 % (36.0-66.0); PLATELET COUNT, AUTOMATED 251 10^3/uL (150-450); RED BLOOD COUNT 5.47 10^6/uL (4.30-6.10); WHITE BLOOD COUNT 11.4 10^3/uL (4.0-10.0)
[2021-10-11 08:15] LABS: CK-MB VALUE MASS 1.9 NG/ML (<3.6); MB/CK RELATIVE INDEX 0.59 (< OR =4)
[2021-10-11 08:26] LABS: ALBUMIN 3.5 GM/DL (3.2-5.2); ALT/SGPT 26 U/L (12-78); BILIRUBIN,DIRECT < 0.1 MG/DL (0.0-0.2); BILIRUBIN,TOTAL 0.4 MG/DL (0.2-1.0); BLOOD UREA NITROGEN 23 MG/DL (7-18); CARBON DIOXIDE LEVEL 24 MEQ/L (21-32); CHLORIDE LEVEL 111 MEQ/L (98-107); CREATININE FOR GFR 1.08 MG/DL (0.70-1.30); GLOMERULAR FILTRATION RATE > 60.0 (>56); GLUCOSE, FASTING 102 MG/DL (70-100); LIPASE 76 U/L (73-393); NT-PRO BNP 87 PG/ML (<125); POTASSIUM SERUM 4.8 MEQ/L (3.5-5.1); SODIUM LEVEL 141 MEQ/L (136-145); TOTAL PROTEIN 6.8 GM/DL (6.4-8.2)
[2021-10-11 08:29] VITALS: BP 108/67
[2021-10-11 09:22] LABS: CK-MB VALUE MASS 1.8 NG/ML (<3.6); MB/CK RELATIVE INDEX 0.58 (< OR =4)
[2021-10-11] MEDS ORDERED: FLECAINIDE 50MG TABLET PO STA (09:40)
[2021-10-11 13:59] VITALS: BP 109/61
== END 2021-10-11 14:11 | disposition home or self-care (01) ==
LOC: M ED 07:07
DX: I48.91 Unspecified atrial fibrillation (principal); Z79.82 Long term (current) use of aspirin; F17.210 Nicotine dependence, cigarettes, uncomplicated

== ENCOUNTER → 2022-08-24 | Outpatient (CLI) | payer OTHER ==
[~2022-08-24] MED LIST changes: +ESOM0.1C PO
[2022-08-24 13:56] LABS: BASO # 0.1 10^3/uL (0.0-0.2); BASO % 0.9 % (0.0-1.0); EOS # 0.3 10^3/uL (0.0-0.5); EOS % 2.7 % (0.0-3.0); HEMATOCRIT 43.1 % (42.0-52.0); HEMOGLOBIN 14.5 g/dl (13.5-17.5); LYMPH # 3.3 10^3/uL (1.5-5.0); LYMPH % 34.8 % (24.0-44.0); MEAN CORPUSCULAR HEMOGLOBIN 29.5 pg (27.0-33.0); MEAN CORPUSCULAR HGB CONC 33.6 g/dl (32.0-36.5); MEAN CORPUSCULAR VOLUME 87.6 fl (80.0-96.0); MONO # 0.8 10^3/uL (0.0-0.8); MONO % 8.7 % (2.0-8.0); NEUTROPHILS # 4.9 10^3/uL (1.5-8.5); NEUTROPHILS % 52.6 % (36.0-66.0); PLATELET COUNT, AUTOMATED 246 10^3/uL (150-450); RED BLOOD COUNT 4.92 10^6/uL (4.30-6.10); WHITE BLOOD COUNT 9.3 10^3/uL (4.0-10.0)
[2022-08-24 14:16] LABS: ERYTHROCYTE SEDIMENTATION RATE 8 mm/hr (0-20)
[2022-08-24 14:23] LABS: C REACTIVE PROTEIN QUANTITATIV < 0.40 MG/DL (<1.0)
[2022-08-24 14:24] LABS: RHEUMATOID FACTOR QUANT < 3.5 IU/ML (<14)
[2022-08-25 13:08] LABS: ANTINUCLEAR ANTIBODIES DIRECT Negative (Negative)
== END ==
LOC: M PLALAB 11:36
PROVIDERS: ATTEND Orthopaedic Surgery
DX: M16.0 Bilateral primary osteoarthritis of hip (principal)

== ENCOUNTER → 2022-09-17 | Outpatient (CLI) | payer OTHER ==
[~2022-09-17] MED LIST changes: +**SFHN** LIDOCAINE 1% MDV 20ML VIAL ONE; +**SFHN** TRIAMCINOLONE ACETONIDE SUSP 40 MG/ML 1ML VIAL ONE; +ISOVUE-300 61% 100ML VIAL ONE
== END ==
LOC: M PLAIMG 13:52
PROVIDERS: ATTEND Orthopaedic Surgery
DX: M16.12 Unilateral primary osteoarthritis, left hip (principal)
CPT/HCPCS: 20610; 76000; J3301; Q9967

== ENCOUNTER → 2023-04-15 | Outpatient (CLI) | payer OTHER ==
[~2023-04-15] MED LIST changes: -**SFHN** LIDOCAINE 1% MDV 20ML VIAL ONE; -**SFHN** TRIAMCINOLONE ACETONIDE SUSP 40 MG/ML 1ML VIAL ONE; -ISOVUE-300 61% 100ML VIAL ONE
[2023-04-15 11:46] LABS: APPEARANCE, URINE HAZY (CLEAR); BACTERIA, URINE AUTO NEGATIVE (NEGATIVE); BILIRUBIN, URINE AUTO NEGATIVE (NEGATIVE); BLOOD, URINE BLOOD 1+ (NEGATIVE); COLOR, URINE AMBER (YELLOW); GLUCOSE, URINE (UA) AUTO NEGATIVE (NEGATIVE); KETONE, URINE AUTO TRACE mg/dL (NEGATIVE); LEUKOCYTE ESTERASE, URINE AUTO TRACE (NEGATIVE); MUCUS, URINE SMALL (NEGATIVE); NITRITE, URINE AUTO NEGATIVE (NEGATIVE); PROTEIN, URINE AUTO NEGATIVE (NEGATIVE); RBC, URINE AUTO 8 /HPF (0-3); SPECIFIC GRAVITY URINE AUTO 1.019 (1.002-1.035); SQUAMOUS EPITHELIAL CELL UR AU 0 /HPF (0-6); WBC, URINE AUTO 2 /HPF (0-3)
[2023-04-15 11:47] LABS: HEMATOCRIT 43.7 % (42.0-52.0); HEMOGLOBIN 14.8 g/dl (13.5-17.5); MEAN CORPUSCULAR HEMOGLOBIN 29.5 pg (27.0-33.0); MEAN CORPUSCULAR HGB CONC 33.9 g/dl (32.0-36.5); MEAN CORPUSCULAR VOLUME 87.1 fl (80.0-96.0); PLATELET COUNT, AUTOMATED 245 10^3/uL (150-450); RED BLOOD COUNT 5.02 10^6/uL (4.30-6.10); WHITE BLOOD COUNT 12.5 10^3/uL (4.0-10.0)
[2023-04-15 11:59] LABS: INR 0.96; PROTHROMBIN TIME 12.5 SECONDS (12.5-14.5)
[2023-04-15 12:20] LABS: ALBUMIN 3.7 G/DL (3.2-5.2); ALKALINE PHOSPHATASE 65 U/L (46-116); ALT/SGPT 27 U/L (7.0-40); AST/SGOT 19 U/L (<34); BILIRUBIN,TOTAL 0.5 MG/DL (0.3-1.2); BLOOD UREA NITROGEN 16 MG/DL (9-23); CARBON DIOXIDE LEVEL 27 MMOL/L (20-31); CHLORIDE LEVEL 109 MMOL/L (98-107); CHOLESTEROL LEVEL 214 MG/DL (<200); CHOLESTEROL RISK RATIO 3.84 (<5); CREATININE FOR GFR 0.81 MG/DL (0.70-1.30); GLOMERULAR FILTRATION RATE > 60.0 (>49); GLUCOSE, FASTING 85 MG/DL (74-106); HDL CHOLESTEROL 55.7 MG/DL (>40); LDL CHOLESTEROL 145.5 MG/DL (<100); NON-HDL-C 158.3 MG/DL; POTASSIUM SERUM 4.4 MMOL/L (3.5-5.1); PROSTATIC SPECIFIC AG MONITOR 3.79 NG/ML (< 4.00); SODIUM LEVEL 139 MMOL/L (136-145); TESTOSTERONE 410 NG/DL (241-827); THYROID STIMULATING HORMONE 1.415 uIU/ML (0.55-4.78); TOTAL PROTEIN 6.5 G/DL (5.7-8.2); TRIGLYCERIDES LEVEL 64 MG/DL (<150)
[2023-04-15 12:21] LABS: HEMOGLOBIN A1c 4.7 % (4.0-6.0)
== END ==
LOC: M RAD 11:02
PROVIDERS: ATTEND Family Medicine
DX: I10 Essential (primary) hypertension (principal); R53.83 Other fatigue; E03.9 Hypothyroidism, unspecified

== ENCOUNTER → 2023-04-22 | Outpatient (CLI) | payer OTHER | LOC: M WHC 08:17 | PROVIDERS: ATTEND Family Medicine | DX: N28.81 Hypertrophy of kidney (principal); N32.9 Bladder disorder, unspecified; N40.0 Benign prostatic hyperplasia without lower urinary tract symptoms; K82.4 Cholesterolosis of gallbladder; R31.9 Hematuria, unspecified ==

== ENCOUNTER → 2023-05-13 | Outpatient (REF) | payer OTHER ==
[2023-05-13 18:02] LABS: APPEARANCE, URINE CLEAR (CLEAR); BACTERIA, URINE AUTO NEGATIVE (NEGATIVE); BILIRUBIN, URINE AUTO NEGATIVE (NEGATIVE); BLOOD, URINE BLOOD NEGATIVE (NEGATIVE); COLOR, URINE YELLOW (YELLOW); GLUCOSE, URINE (UA) AUTO NEGATIVE (NEGATIVE); KETONE, URINE AUTO NEGATIVE (NEGATIVE); LEUKOCYTE ESTERASE, URINE AUTO NEGATIVE (NEGATIVE); MUCUS, URINE SMALL (NEGATIVE); NITRITE, URINE AUTO NEGATIVE (NEGATIVE); PROTEIN, URINE AUTO NEGATIVE (NEGATIVE); RBC, URINE AUTO 0 /HPF (0-3); SPECIFIC GRAVITY URINE AUTO 1.015 (1.002-1.035); SQUAMOUS EPITHELIAL CELL UR AU 0 /HPF (0-6); UROBILINOGEN, URINE AUTO 0.2 mg/dL (0.0-2.0); WBC, URINE AUTO 0 /HPF (0-3)
== END ==
LOC: M SMT 16:56
PROVIDERS: ATTEND Nurse Practitioner Family
DX: R31.9 Hematuria, unspecified (principal)

== ENCOUNTER → 2023-05-23 | Outpatient (CLI) | payer OTHER ==
[2023-05-23 12:12] LABS: BLOOD UREA NITROGEN 19 MG/DL (9-23); CALCIUM LEVEL 9.2 MG/DL (8.3-10.6); CARBON DIOXIDE LEVEL 28 MMOL/L (20-31); CHLORIDE LEVEL 104 MMOL/L (98-107); CREATININE FOR GFR 0.85 MG/DL (0.70-1.30); GLOMERULAR FILTRATION RATE > 60.0 (>49); GLUCOSE, FASTING 81 MG/DL (74-106); POTASSIUM SERUM 4.2 MMOL/L (3.5-5.1); SODIUM LEVEL 141 MMOL/L (136-145)
== END ==
LOC: M WUC 08:02
PROVIDERS: ATTEND Nurse Practitioner Family
DX: R31.9 Hematuria, unspecified (principal)

== ENCOUNTER → 2023-05-24 | Outpatient (CLI) | payer OTHER ==
[~2023-05-24] MED LIST changes: +ISOVUE-370 76% 100ML VIAL As Ordered ONE
== END ==
LOC: M RAD 12:58
PROVIDERS: ATTEND Nurse Practitioner Family
DX: N40.0 Benign prostatic hyperplasia without lower urinary tract symptoms (principal); N20.0 Calculus of kidney; K57.30 Diverticulosis of large intestine without perforation or abscess without bleeding; R31.9 Hematuria, unspecified
CPT/HCPCS: 74178; Q9967

== ENCOUNTER → 2023-06-04 | Outpatient (REF) | payer OTHER ==
[~2023-06-04] MED LIST changes: -ISOVUE-370 76% 100ML VIAL As Ordered ONE
== END ==
LOC: M SMT 18:02
PROVIDERS: ATTEND Urology
DX: R31.0 Gross hematuria (principal)

== ENCOUNTER 2023-07-22 09:39 | Emergency (ER) | payer OTHER ==
[~2023-07-22] VITALS: Ht 188 cm; Wt 94.5 kg
[2023-07-22] MEDS ORDERED: METO1TAB87 (10:01)
[2023-07-22] MEDS ORDERED: ESOM40CA35 (10:01)
[2023-07-22] MEDS ORDERED: TAMS1CAP17 (10:01)
[2023-07-22] MEDS ORDERED: ASPI-1 PO (10:01)
[2023-07-22 11:17] LABS: ALBUMIN 3.6 G/DL (3.2-5.2); ALKALINE PHOSPHATASE 61 U/L (46-116); ALT/SGPT 18 U/L (7.0-40); AST/SGOT 22 U/L (<34); BILIRUBIN,DIRECT 0.2 MG/DL (<0.4); BILIRUBIN,TOTAL 0.5 MG/DL (0.3-1.2); BLOOD UREA NITROGEN 14 MG/DL (9-23); CALCIUM LEVEL 8.4 MG/DL (8.3-10.6); CARBON DIOXIDE LEVEL 23 MMOL/L (20-31); CHLORIDE LEVEL 105 MMOL/L (98-107); CREATININE FOR GFR 0.86 MG/DL (0.70-1.30); GLOMERULAR FILTRATION RATE > 60.0 (>49); GLUCOSE, FASTING 88 MG/DL (74-106); SODIUM LEVEL 133 MMOL/L (136-145); TOTAL PROTEIN 6.2 G/DL (5.7-8.2)
[2023-07-22 11:19] LABS: THYROID STIMULATING HORMONE 0.723 uIU/ML (0.55-4.78); THYROXINE (T4) 8.6 UG/DL (4.5-10.9)
[2023-07-22 12:13] VITALS: BP 96/52; TEMP 96.4; O2SAT 97
== END 2023-07-22 12:22 | disposition home or self-care (01) ==
LOC: M ED 09:39
DX: J09.X2 Influenza due to identified novel influenza A virus with other respiratory manifestations (principal); F17.200 Nicotine dependence, unspecified, uncomplicated; Z79.82 Long term (current) use of aspirin; Z79.899 Other long term (current) drug therapy

== ENCOUNTER → 2023-11-06 | Outpatient (CLI) | payer OTHER ==
[~2023-11-06] MED LIST changes: +ASPI-1 PO; +ESOM40CA35; +ISOVUE-300 61% 100ML VIAL As Ordered ONE; +LIDOCAINE 1% MDV 20ML VIAL As Ordered ONE; +METO1TAB87; +TAMS1CAP17; +TRIAMCINOLONE ACETONIDE SUSP 40MG/ML 1ML VIAL As Ordered ONE
== END ==
LOC: M RAD 14:57
PROVIDERS: ATTEND Orthopaedic Surgery
DX: M16.11 Unilateral primary osteoarthritis, right hip (principal)
CPT/HCPCS: 20610; 77002; J3301; Q9967

== ENCOUNTER → 2024-01-22 | Outpatient (REF) | payer OTHER ==
[~2024-01-22] MED LIST changes: -ESOM0.1C PO; +ESOM20CA2 PO; -ISOVUE-300 61% 100ML VIAL As Ordered ONE; -LIDOCAINE 1% MDV 20ML VIAL As Ordered ONE; -TRIAMCINOLONE ACETONIDE SUSP 40MG/ML 1ML VIAL As Ordered ONE
== END ==
LOC: M LAB REF 09:35
PROVIDERS: ATTEND Physician Assistant
DX: L03.114 Cellulitis of left upper limb (principal)

== ENCOUNTER → 2024-06-04 | Outpatient (CLI) | payer OTHER ==
[2024-06-04 10:38] LABS: HEMATOCRIT 45.3 % (42.0-52.0); HEMOGLOBIN 15.2 g/dl (13.5-17.5); MEAN CORPUSCULAR HEMOGLOBIN 29.8 pg (27.0-33.0); MEAN CORPUSCULAR HGB CONC 33.6 g/dl (32.0-36.5); MEAN CORPUSCULAR VOLUME 88.8 fl (80.0-96.0); PLATELET COUNT, AUTOMATED 251 10^3/uL (150-450); WHITE BLOOD COUNT 11.8 10^3/uL (4.0-10.0)
[2024-06-04 11:08] LABS: THYROID STIMULATING HORMONE 1.276 uIU/ML (0.55-4.78)
[2024-06-04 11:09] LABS: ALBUMIN 3.5 G/DL (3.2-5.2); ALKALINE PHOSPHATASE 54 U/L (40-129); ALT/SGPT 19 U/L (7.0-40); AST/SGOT 11 U/L (<34); BILIRUBIN,TOTAL 0.4 MG/DL (0.3-1.2); BLOOD UREA NITROGEN 21 MG/DL (9-23); CARBON DIOXIDE LEVEL 27 MMOL/L (20-31); CHLORIDE LEVEL 109 MMOL/L (98-107); GLOMERULAR FILTRATION RATE > 60.0 (>49); GLUCOSE, FASTING 81 MG/DL (74-106); POTASSIUM SERUM 4.6 MMOL/L (3.5-5.1); SODIUM LEVEL 141 MMOL/L (136-145); TOTAL PROTEIN 6.4 G/DL (5.7-8.2)
== END ==
LOC: M WUC 08:36
PROVIDERS: ATTEND Internal Medicine Cardiovascular Disease
DX: I48.0 Paroxysmal atrial fibrillation (principal)

== ENCOUNTER → 2024-06-22 | Outpatient (CLI) | payer OTHER | LOC: M WUC 09:31 | PROVIDERS: ATTEND Physician Assistant | DX: Z12.5 Encounter for screening for malignant neoplasm of prostate (principal); Z87.442 Personal history of urinary calculi | CPT/HCPCS: 36415; 74018; G0103 ==

== ENCOUNTER → 2024-07-06 | Outpatient (REF) | payer OTHER ==
[2024-07-06 18:36] LABS: APPEARANCE, URINE CLEAR (CLEAR); BACTERIA, URINE AUTO NEGATIVE (NEGATIVE); BILIRUBIN, URINE AUTO NEGATIVE (NEGATIVE); BLOOD, URINE BLOOD NEGATIVE (NEGATIVE); COLOR, URINE YELLOW (YELLOW); GLUCOSE, URINE (UA) AUTO NEGATIVE (NEGATIVE); KETONE, URINE AUTO NEGATIVE (NEGATIVE); LEUKOCYTE ESTERASE, URINE AUTO NEGATIVE (NEGATIVE); MUCUS, URINE SMALL (NEGATIVE); NITRITE, URINE AUTO NEGATIVE (NEGATIVE); PROTEIN, URINE AUTO NEGATIVE (NEGATIVE); RBC, URINE AUTO 1 /HPF (0-3); SQUAMOUS EPITHELIAL CELL UR AU 0 /HPF (0-6); UROBILINOGEN, URINE AUTO 0.2 mg/dL (0.0-2.0); WBC, URINE AUTO 2 /HPF (0-3)
== END ==
LOC: M SMT 17:10
PROVIDERS: ATTEND Nurse Practitioner Family
DX: Z87.898 Personal history of other specified conditions (principal)